=== PATIENT | male | born 1945 | race Caucasian/White ===

== ENCOUNTER 2017-05-05 13:05 | Emergency (ER) | payer OTHER ==
[~2017-05-05] VITALS: Ht 177.8 cm; Wt 104.5 kg
[~2017-05-05 13:05] MED LIST: ACID CONTROLLER20 MG PO; ALLOPURINOL300 MG PO; ARTIFICIAL TEAR15 M1 BOTH EYES; ASPIRIN81 M1 PO; GLIMEPIRIDE2 MG PO; GLIMEPIRIDE4 MG PO; GLUCOPHAGE XR,500 MG PO; GLUCOPHAGE1000 MG PO; LOSARTAN POTASS50 MG PO; METFORMIN HCL500 MG PO; PRAVASTATIN SOD40 MG PO; PROBENECID500 MG PO; PROTONIX40 MG PO
[2017-05-05 14:02] LABS: CHLORIDE 103 mEq/L (99-109); POTASSIUM 4.3 mEq/L (3.7-5.4); SODIUM 134 mEq/L (136-147)
[2017-05-05 14:03] LABS: EOSINOPHIL (%) 1.9 % (0-5); EOSINOPHIL COUNT 0.1 K/uL (0-0.3); HEMATOCRIT 31.9 % (38.0-50.0); IMMATURE GRANULOCYTE (%) 0.8 % (0.0-0.7); IMMATURE GRANULOCYTE COUNT 0.1 K/uL; INSTRUMENT ABS NEUTROPHIL CT 5.1 K/uL; LYMPHOCYTE COUNT 1.5 K/uL (1.0-2.8); MCH 29.9 PG (29.0-34.0); MCHC 33.5 G/DL (30.0-36.0); MCV 89.1 FL (86-99); MEAN PLAT.VOLUME 9.4 uM^3 (9.0-12.4); MONOCYTE (%) 9.7 % (3-12); MONOCYTE COUNT 0.7 K/uL (0-0.8); NEUTROPHIL (%) 67.5 % (45-76); NEUTROPHIL COUNT 5.1 K/uL (1.8-6.4); PLATELET COUNT 234 K/uL (156-360); RBC DIS.WIDTH-CV 13.2 % (11.8-14.6); RBC DIS.WIDTH-SD 43.3 % (39-53); RED BLOOD COUNT 3.58 M/uL (4.00-5.50); WHITE BLOOD COUNT 7.5 K/uL (4.1-10.2)
[2017-05-05 14:03] LABS: ADD MIUA? NO; BILIRUBIN NEGATIVE; BLOOD NEGATIVE; COLOR YELLOW ((YELLOW)); GLUCOSE (STRIP) NEGATIVE; KETONES NEGATIVE; LEUKOCYTES NEGATIVE; NITRITE NEGATIVE; PROTEIN (STRIP) NEGATIVE; SPECIFIC GRAVITY 1.011 (1.000-1.030); UCUL ADDED? NO; UROBILINOGEN 0.2 MG/DL (0.2-1.0)
[2017-05-05 14:04] LABS: GLUCOSE 162 mg/dL (70-99)
[2017-05-05 14:05] LABS: ANION GAP 11 MEQ/L (2-14)
[2017-05-05 14:08] LABS: GFR ESTIMATE (CALCULATED) 40 mL/min/; UREA NITROGEN (BUN) 32 mg/dL (9-23)
[2017-05-05 15:33] VITALS: BP 113/60
== END 2017-05-05 15:33 | disposition home or self-care (01) ==
LOC: EME 13:05
PROVIDERS: Emergency Medicine
PROC: 0T9B70Z Drainage of Bladder with Drainage Device, Via Natural or Artificial Opening (ICD-10-PCS; principal; 2017-05-05)
DX: R33.9 Retention of urine, unspecified (principal); R35.0 Frequency of micturition; R30.0 Dysuria; Z98.890 Other specified postprocedural states; Z95.1 Presence of aortocoronary bypass graft; Z87.442 Personal history of urinary calculi; I10 Essential (primary) hypertension; E11.9 Type 2 diabetes mellitus without complications; Z79.84 Long term (current) use of oral hypoglycemic drugs; Z79.82 Long term (current) use of aspirin
CPT/HCPCS: 80048; 81003; 85025; 99281; 99284